=== PATIENT | male | born 1975 | race Caucasian/White ===

== ENCOUNTER 2018-02-13 16:14 | Emergency (ER) | payer OTHER ==
[~2018-02-13] VITALS: Ht 165.1 cm; Wt 67.2 kg
[2018-02-13 18:13] VITALS: BP 119/77
[2018-02-13] MEDS ORDERED: OXYcodone/APAP 5/325MG TABLET ONE ×2 (18:24→18:26)
[2018-02-13] MEDS ORDERED: OXYcodone/APAP 5/325MG TABLET PO ONE (18:30)
== END 2018-02-13 18:47 | disposition home or self-care (01) ==
LOC: ED 18:41
DX: G44.201 Tension-type headache, unspecified, intractable (principal); S16.1XXA Strain of muscle, fascia and tendon at neck level, initial encounter; V89.2XXA Person injured in unspecified motor-vehicle accident, traffic, initial encounter; Y93.89 Activity, other specified; Y99.8 Other external cause status; Y92.410 Unspecified street and highway as the place of occurrence of the external cause
CPT/HCPCS: 70450; 71045; 72125; 99284